=== PATIENT | female | born 1960 | race Caucasian/White ===

== ENCOUNTER 2023-11-23 07:10 | Day surgery (SDC) | payer MEDICARE, BC, SELFPAY ==
[2023-11-19 12:47] VITALS: BMI 33.3
[2023-11-23 07:19] VITALS: BP 133/77; PULSE 67; RESP 16; TEMP 36.8; O2SAT 97; BMI 33.6
[2023-11-23] MEDS: Lactated Ringers 1,000 ML 80 ML IVCONT (08:13)
--- NOTE | 2023-11-23 08:31 | MHC.SHP ---
Pre-Procedural Eval Section A - 24 Hr Update-Section A only Date of Service: 11/23/23 Section B - Complete if H&P > 30 days Chief Complaint: screening Details of Present Illness: see H&P no changes Relevant Family History (Specify if Yes): No Relevant Social History: None Present Medications: see Short Stay Collaborative assessment Medical History: No relevant PMH History of Previous Operations: No relevant previous surgery Allergies: Allergies Allergy/AdvReac Type Severity Reaction Status Date / Time codeine Allergy Unknown Unknown Verified 11/19/23 12:47 Sulfa (Sulfonamide Allergy Unknown Unknown Verified 11/19/23 12:47 Antibiotics) Review of Systems Sugical H&P ROS: Negative: Constitution, Cardiovascular, Respiratory, Neurological, Psychiatric, Hem-Onc, Allergic/Immunologic, Gastrointestinal, Genitourinary, Musculoskeletal, Integumentary, Endocrine and Eyes/Ears/Nose/Throat Exam Surgical H&P Exam: Normal: HEENT, Normal: Heart, Normal: Lungs, Normal: Extremities, Normal: Abdomen, Normal: Skin and Normal: Neurological Plan Diagnosis/Plan: Unchanged I have reviewed the history and physical and performed a pertinent physical examination on my patient. No changes have occurred unless specified. Time Spent With Patient Time: Total time managing care of this patient today ____ minutes.
--- NOTE | 2023-11-23 08:39 | P.CONAN_ITS ---
[facility] Past Medical History Medical History HSV (herpes simplex virus) infection Anxiety Hypothyroid Arthritis Chronic renal insufficiency GERD (gastroesophageal reflux disease) Hyperlipidemia HTN (hypertension) Surgical History Surgical History Hx of section H/O colonoscopy History of Problems with Anesthesia: No Social History Social History Household Members: Spouse Are you a primary professional healthcare representative to a significant other at home: No Do you presently have visiting nurse or other home services: No Patient Tobacco Use Status: Former Tobacco user Use of substances other than those prescribed or required for medical reasons: No Have you been hit, kicked, punched, or otherwise hurt by someone within the past year? If so, by whom?: No Are you DNR?: No Advance Directives: No Advance Directives Information Provided: Yes Recently lost weight without trying: No Meds Allergies Allergy/AdvReac Type Severity Reaction Status Date / Time codeine Allergy Unknown Unknown Verified 11/19/23 12:47 Sulfa (Sulfonamide Allergy Unknown Unknown Verified 11/19/23 12:47 Antibiotics) Active Medications: Current Medications Lactated Ringer's (Lr) 1,000 mls @ 80 mls/hr IVCONT .[id number] ZANDER Last Admin: 11/23/23 08:13 Dose: 80 mls/hr Home Medications ?Medication ?Instructions ?Recorded ?Confirmed ?Last Taken ?Type Lactobacillus acidophilus and 1 cap PO DAILY 11/19/23 11/19/23 Unknown History rhamnosus 15 billion cell capsule (Probiotic) Vitamin D3 1 cap PO DAILY 11/19/23 11/19/23 Unknown History atenolol 50 mg tablet 50 mg PO DAILY 11/19/23 11/19/23 Unknown History atorvastatin 1 tab PO DAILY 11/19/23 11/19/23 Unknown History cetirizine 10 mg tablet (Zyrtec) 10 mg PO DAILY 11/19/23 11/19/23 Unknown History fluoxetine 20 mg capsule 20 mg PO DAILY 11/19/23 11/19/23 Unknown History fluticasone propionate 50 2 spray intranasal DAILY 11/19/23 11/19/23 Unknown History mcg/actuation nasal spray,suspension levothyroxine 75 mcg tablet 75 mcg PO DAILY 11/19/23 11/19/23 Unknown History omeprazole 10 mg capsule,delayed 10 mg PO DAILY 11/19/23 11/19/23 Unknown History release Exam Height,Weight and Vital Signs: Height 5 ft 2 in Weight 83.234 kg Last Vital Signs Temp 98.3 F 11/23/23 07:19 Pulse 67 11/23/23 07:19 Resp 16 11/23/23 07:19 BP 133/77 11/23/23 07:19 Pulse Ox 97 11/23/23 07:19 O2 Del Method Room Air 11/23/23 07:19 Airway Mallampati Class: II TM Dist: >3cm Neck ROM: Full Loose/Missing/Broken Teeth: No Heart: RRR Lungs: CTA Assessment and Plan Assessment Anesthesia Assessment: Anesthesia Plan Discussed and Chart Reviewed Final Anesthetic Review History of Problems with Anesthesia: No NPO: Yes ASA Class: II Final Preanesthetic Review: Meds/Allgs Chart Reviewed, Consent Obtained/Reviewed and Anes Risks/Benef Reviewed Patient Risk: Low Procedure Risk: Low Anesthetic Plan Anesthetic Plan: MAC: Disposition: Standard PACU
[2023-11-23 09:25] VITALS: BP 98/44; PULSE 58; RESP 18; TEMP 36.2; O2SAT 99
[2023-11-23 09:40] VITALS: BP 116/75; PULSE 63; RESP 18; O2SAT 96
--- NOTE | 2023-11-23 09:40 | OP_ITS ---
DATE OF SERVICE: 11/23/2023 SURGEON: Rk Kapoor MD INDICATIONS: Colon cancer screening. PREOPERATIVE DIAGNOSIS: POSTOPERATIVE DIAGNOSIS: PROCEDURE PERFORMED: ESTIMATED BLOOD LOSS: COMPLICATIONS: ANESTHESIA: ASSISTANTS: SPECIMENS: PROCEDURE: Colonoscopy to the terminal ileum with biopsy. MEDICATIONS: Monitored anesthesia care. DESCRIPTION OF PROCEDURE: History and physical performed. The risks and benefits of the procedure were explained to the patient. Informed consent was obtained. The patient was placed in the left lateral decubitus position. A digital rectal exam was performed and was found to be normal. The Olympus pediatric videocolonoscope was introduced into the rectum and advanced to the cecum. The cecum was identified by transillumination, palpation, and identification of ileocecal valve. Examination was performed. The scope was removed. She tolerated the procedure well and was taken to the recovery room in stable condition. FINDINGS: The terminal ileum was examined and appeared normal. The visualized colonic mucosa was normal. The quality of the prep was good. 2 polyps were identified measuring less than 5 mm. These were removed with biopsy forceps. The polyps were located at 60 cm and in the rectosigmoid, there was mild sigmoid diverticulosis. Retroflexed examination showed some small internal hemorrhoids. IMPRESSION: Colon polyps. RECOMMENDATION: Follow up the biopsy results. MD JAVIER Looney/LYNN / [id number]
[2023-11-23 09:55] VITALS: BP 127/61; PULSE 59; RESP 18; TEMP 36.2; O2SAT 96
== END 2023-11-23 10:20 | disposition home or self-care (01) ==
PROVIDERS: PCP Internal Medicine; Visit Provider Internal Medicine Gastroenterology
PROC: 0DJD8ZZ Inspection of Lower Intestinal Tract, Via Natural or Artificial Opening Endoscopic (ICD-10-PCS; CPT 45378; principal; 2023-11-23 08:20)
DX: Z12.11 Encounter for screening for malignant neoplasm of colon (principal); K63.5 Polyp of colon; K62.1 Rectal polyp; K57.30 Diverticulosis of large intestine without perforation or abscess without bleeding; K64.8 Other hemorrhoids; K21.9 Gastro-esophageal reflux disease without esophagitis; I12.9 Hypertensive chronic kidney disease with stage 1 through stage 4 chronic kidney disease, or unspecified chronic kidney disease; N18.31 Chronic kidney disease, stage 3a; E78.5 Hyperlipidemia, unspecified; Z87.891 Personal history of nicotine dependence; Z88.2 Allergy status to sulfonamides; Z88.5 Allergy status to narcotic agent; Z79.899 Other long term (current) drug therapy
CPT/HCPCS: 45380; 88305; J2704